=== PATIENT | male | born 1985 | race Caucasian/White ===

== ENCOUNTER 2018-10-18 10:42 | Emergency (ER) | payer SELFPAY ==
[~2018-10-18] VITALS: Ht 167.6 cm; Wt 76.6 kg
[2018-10-18 10:43] VITALS: BP 121/76
[2018-10-18] MEDS ORDERED: BACT800T5 PO (12:28)
== END 2018-10-18 12:32 | disposition home or self-care (01) ==
LOC: M ED 10:42
DX: S70.361A Insect bite (nonvenomous), right thigh, initial encounter (principal); L08.9 Local infection of the skin and subcutaneous tissue, unspecified; W57.XXXA Bitten or stung by nonvenomous insect and other nonvenomous arthropods, initial encounter; F17.200 Nicotine dependence, unspecified, uncomplicated; Z88.0 Allergy status to penicillin